=== PATIENT | male | born 1975 | race Hispanic/Latino ===

== ENCOUNTER → 2018-11-16 | Outpatient (CLI) | payer BC ==
--- NOTE | 2018-11-16 16:34 | Diagnostic Imaging Report ---
EXAMINATION: Scrotal ultrasound CLINICAL INDICATION: Concern for orchitis. COMPARISON: None available. TECHNIQUE: Grayscale and color Doppler evaluation of the scrotum was performed in transverse and longitudinal planes. FINDINGS: The right testicle measures 5.2 x 2.3 x 3.7 cm. There are no masses or calcifications.. The right epididymis measures 0.9 x 0.5 x 0.7 cm. No nodules or masses.. There is no evidence of right hydrocele or varicocele. There is normal flow to the right testicle, without evidence of torsion. The left testicle measures 5 x 2.5 x 3 cm. There are no masses or calcifications.. The left epididymis measures 0.7 x 0.8 x 0.8 cm. No nodules or masses.. There is no evidence of left hydrocele or varicocele. There is normal flow to the left testicle without evidence of torsion. The scrotum has a normal appearance, without focal lesions. Impression: Unremarkable sonographic appearance of the testes. No sonographic findings of orchitis per clinical query. Signed by: Dr. Angel Mahmood M.D. on 11/16/2018 4:30 PM
== END ==
LOC: US 15:14
PROVIDERS: ATTEND Internal Medicine
DX: N45.2 Orchitis (principal)
CPT/HCPCS: 76870; 93976

== ENCOUNTER → 2021-11-03 | Outpatient (CLI) | payer BC | LOC: US 08:31 | PROVIDERS: ATTEND Family Medicine | DX: R10.9 Unspecified abdominal pain (principal); K59.00 Constipation, unspecified | CPT/HCPCS: 76700 ==